=== PATIENT | female | born 1945 | race Caucasian/White ===

== ENCOUNTER 2017-11-26 08:24 | Emergency (ER) | payer OTHER, BC ==
[~2017-11-26] VITALS: Ht 165.1 cm; Wt 90.7 kg
[~2017-11-26 08:24] MED LIST: ATORVASTATIN CA40 MG PO; GENTAMICIN SU3 MG/ML OPHTHALMIC; NORCO 5-325 TA1 EACH PO; TOPROL XL25 MG PO
[2017-11-26 08:51] VITALS: BP 158/72
[2017-11-26] MEDS ORDERED: ASPIR 8181 MG PO (08:56)
[2017-11-26] MEDS ORDERED: OLOPATADINE HCL5 ML (08:56)
== END 2017-11-26 09:55 | disposition home or self-care (01) ==
LOC: ER 08:24
DX: J06.9 Acute upper respiratory infection, unspecified (principal); I10 Essential (primary) hypertension; E78.00 Pure hypercholesterolemia, unspecified

== ENCOUNTER → 2020-07-02 | Outpatient (CLI) | payer OTHER, BC ==
[~2020-07-02] MED LIST changes: +ASPIR 8181 MG PO; +OLOPATADINE HCL5 ML
== END ==
LOC: BC 07:45 → EDSTATUS 15:58
PROVIDERS: ATTEND Nurse Practitioner
DX: Z12.31 Encounter for screening mammogram for malignant neoplasm of breast (principal); M81.0 Age-related osteoporosis without current pathological fracture

== ENCOUNTER → 2020-12-21 | Outpatient (CLI) | payer OTHER, BC | LOC: RAD 10:20 | PROVIDERS: ATTEND Nurse Practitioner | DX: R68.84 Jaw pain (principal) ==